=== PATIENT | female | born 1960 | race Caucasian/White ===

== ENCOUNTER 2018-03-16 08:18 | Day surgery (SDC) | payer OTHER ==
[2018-03-16] MEDS ORDERED: LIDOCAINE 2% (SDV) 5 ML INJ (09:34)
[2018-03-16] MEDS ORDERED: PROPOFOL 40 ML (09:34)
[2018-03-16] MEDS ORDERED: ONDANSETRON 4 MG INJ IV (10:00)
== END 2018-03-16 15:15 | disposition home or self-care (01) ==
LOC: GIL 08:18
DX: Z12.11 Encounter for screening for malignant neoplasm of colon (principal); K57.30 Diverticulosis of large intestine without perforation or abscess without bleeding; K64.8 Other hemorrhoids
CPT/HCPCS: 45378